=== PATIENT | female | born 1970 | race African-American/Black ===

== ENCOUNTER 2018-01-21 11:08 | Observation (INO) | payer MEDICAID ==
[~2018-01-21] VITALS: Ht 160 cm; Wt 91.0 kg
[2018-01-21] MEDS ORDERED: NITR0.4T28 SL (11:38)
[2018-01-21] MEDS ORDERED: TRAZ-136 PO (11:38)
[2018-01-21] MEDS ORDERED: ENAL10TA PO (11:38)
[2018-01-21] MEDS ORDERED: SITA50TA PO (11:38)
[2018-01-21] MEDS ORDERED: SERT100T5 PO (11:38)
[2018-01-21] MEDS ORDERED: METF500T5 PO (11:38)
[2018-01-21] MEDS ORDERED: OXYcodone/APAP 5/325MG TABLET ONE (11:44)
[2018-01-21] MEDS ORDERED: SODIUM CHLORIDE FLUSH 10ML SYR IVF ONE (12:00)
[2018-01-21] MEDS ORDERED: OXYcodone/APAP 5/325MG TABLET PO ONE (12:00)
[2018-01-21 12:17] LABS: CHLORIDE 105 mmol/L (98-107)
[2018-01-21 12:18] LABS: ALANINE AMINOTRANSFERASE 15 U/L (12-78); ALBUMIN 3.6 g/dL (3.4-5.0); ANION GAP 8 mmol/L (5-15); BASOPHILS % (AUTO) 0 % (0-1); CALCIUM 8.5 mg/dL (8.5-10.1); CREATININE 0.64 mg/dL (0.55-1.02); EOSINOPHILS % (AUTO) 2 % (1-7); LYMPHOCYTES % (AUTO) 23 % (22-44); MD NO; MEAN CORPUSCULAR HEMOGLOBIN 27.7 pg (27.0-34.8); MEAN CORPUSCULAR HGB CONC 32.9 g/dL (32.4-35.8); MEAN CORPUSCULAR VOLUME 84.4 fL (80-100); MONOCYTES # (AUTO) 0.48 x10^3/uL (0.2-0.8); MONOCYTES % (AUTO) 10 % (2-9); NEUTROPHILS # (AUTO) 3.12 x10^3/uL (1.8-6.8); NEUTROPHILS % (AUTO) 65 % (42-75); PLATELET COUNT 344 x10^3/uL (130-400); RED BLOOD COUNT 3.99 x10^6/uL (3.82-5.3); RED CELL DISTRIBUTION WIDTH 19.2 % (9.6-15.2)
[2018-01-21] MEDS ORDERED: HYDROcodone/APAP 5/325 TABLET ONE (12:21)
[2018-01-21 12:22] LABS: ALKALINE PHOSPHATASE 54 U/L (45-117); BILIRUBIN,TOTAL 0.5 mg/dL (0.2-1.0); TOTAL PROTEIN 7.9 g/dL (6.4-8.2); TROPONIN I < 0.015 ng/mL (0.000-0.045)
[2018-01-21] MEDS ORDERED: HYDROcodone/APAP 5/325 TABLET PO ONE (12:30)
[2018-01-21] MEDS ORDERED: ASPIRIN 81 MG TABLET CHEW PO ONE (12:30)
[2018-01-21] MEDS ORDERED: ASPIRIN 81 MG TABLET CHEW ONE (12:46)
[2018-01-21] MEDS ORDERED: ENALAPRILAT 1.25 MG/ML, 2ML IVPush PRN (14:00)
[2018-01-21] MEDS ORDERED: ONDANSETRON 2MG/ML, 2ML IVPush PRN (14:00)
[2018-01-21] MEDS ORDERED: BACLOFEN 10 MG TABLET PO PRN (14:00)
[2018-01-21] MEDS ORDERED: hydrALAzine 20 MG/ML, 1ML IVPush PRN (14:00)
[2018-01-21] MEDS ORDERED: ONDANSETRON ODT 4 MG PO PRN (14:00)
[2018-01-21] MEDS ORDERED: ACETAMINOPHEN 325 MG TABLET PO PRN (14:00)
[2018-01-21 14:20] VITALS: BP 155/89
[2018-01-21 14:58] LABS: HEMOGLOBIN A1C 6.8 % (4.2-6.3)
[2018-01-21] MEDS: ENOXAPARIN 40 MG/0.4 ML SQ SCH (15:59)
[2018-01-21] MEDS: NICOTINE 21 MG/24 HR PATCH.TD24 TD SCH (16:00)
[2018-01-21] MEDS: FAMOTIDINE 20 MG TABLET PO SCH (17:12)
[2018-01-21 17:56] LABS: CULTURE INDICATED? YES; MICROSCOPIC INDICATED
[2018-01-21 18:10] LABS: TROPONIN I < 0.015 ng/mL (0.000-0.045)
[2018-01-21] MEDS: CARVEDILOL 12.5 MG TABLET PO SCH (18:26)
[2018-01-21] MEDS ORDERED: CEFTRIAXONE 1,000 MG in SODIUM CHLORIDE 0.9% 50 ML IV SCH (19:00)
[2018-01-21 19:33] VITALS: BP 187/112
[2018-01-21] MEDS: metFORMIN 500 MG TABLET PO SCH (19:43)
[2018-01-21] MEDS: HYDROcodone/APAP 5/325 TABLET PO PRN (20:05)
[2018-01-21 20:28] VITALS: BP 140/77
[2018-01-21 20:45] VITALS: BP 151/96
[2018-01-21 20:47] VITALS: BP 147/87
[2018-01-21] MEDS ORDERED: ATORVASTATIN 40 MG TABLET PO SCH (21:00)
[2018-01-21 23:49] LABS: TROPONIN I < 0.015 ng/mL (0.000-0.045)
[2018-01-22] MEDS: HYDROcodone/APAP 5/325 TABLET PO PRN (01:06)
[2018-01-22 01:17] VITALS: BP 144/101
[2018-01-22 01:20] VITALS: BP 152/110
[2018-01-22 01:42] VITALS: BP 142/93
[2018-01-22 05:41] LABS: BASOPHILS # (AUTO) 0.02 x10^3/uL (0-0.1); BASOPHILS % (AUTO) 0 % (0-1); EOSINOPHILS % (AUTO) 2 % (1-7); LYMPHOCYTES # (AUTO) 1.83 x10^3/uL (1-3.4); LYMPHOCYTES % (AUTO) 37 % (22-44); MD NO; MEAN CORPUSCULAR HEMOGLOBIN 28.1 pg (27.0-34.8); MEAN CORPUSCULAR HGB CONC 32.7 g/dL (32.4-35.8); MEAN CORPUSCULAR VOLUME 85.9 fL (80-100); MEAN PLATELET VOLUME 8.3 fL (7.4-10.4); MONOCYTES # (AUTO) 0.41 x10^3/uL (0.2-0.8); MONOCYTES % (AUTO) 8 % (2-9); NEUTROPHILS # (AUTO) 2.54 x10^3/uL (1.8-6.8); NEUTROPHILS % (AUTO) 52 % (42-75); PLATELET COUNT 302 x10^3/uL (130-400); RED BLOOD COUNT 3.64 x10^6/uL (3.82-5.3); RED CELL DISTRIBUTION WIDTH 19.4 % (9.6-15.2)
[2018-01-22 05:51] LABS: CHLORIDE 103 mmol/L (98-107)
[2018-01-22] MEDS ORDERED: ASPIRIN 325 MG TABLET EC PO SCH (06:00)
[2018-01-22 06:03] LABS: ANION GAP 8 mmol/L (5-15); CALCIUM 8.2 mg/dL (8.5-10.1); CHOL/HDL RATIO 5.8; CHOLESTEROL, TOTAL 207 mg/dL (140-239); CREATININE 0.47 mg/dL (0.55-1.02); HDL CHOL % 17 % (28-40); HDL CHOLESTEROL (DIRECT) 36 mg/dL (40-60); LDL CHOLESTEROL,CALCULATED 141 mg/dL (54-169); LDL/HDL RATIO 3.9 (0.5-3.0); TRIGLYCERIDES 148 mg/dL (50-200); VLDL CHOLESTEROL 30 mg/dL (0-25)
[2018-01-22 06:25] VITALS: BP 155/105
[2018-01-22] MEDS: CARVEDILOL 12.5 MG TABLET PO SCH (06:26)
[2018-01-22 08:25] VITALS: BP 139/84
[2018-01-22] MEDS ORDERED: REGADENOSON 0.4 MG/5 ML SYRINGE ONE (08:39)
[2018-01-22] MEDS ORDERED: TRAZODONE 50MG TABLET PO SCH (09:00)
[2018-01-22] MEDS ORDERED: ENALAPRIL 10 MG TABLET PO SCH (09:00)
[2018-01-22] MEDS ORDERED: SITAGLIPTIN 50MG TABLET PO SCH (09:00)
[2018-01-22] MEDS ORDERED: SERTRALINE 100MG TABLET PO SCH (09:00)
[2018-01-22] MEDS: FAMOTIDINE 20 MG TABLET PO SCH (10:25)
[2018-01-22] MEDS: metFORMIN 500 MG TABLET PO SCH (10:25)
[2018-01-22] MEDS ORDERED: HYDROcodone/APAP 5/325 TABLET PO PRN (11:00)
[2018-01-22] MEDS ORDERED: CIPR500T87 PO (13:46)
[2018-01-22] MEDS ORDERED: ASPI-621 PO (13:46)
[2018-01-22] MEDS ORDERED: ATOR20TA9 PO (13:46)
[2018-01-22 14:23] VITALS: BP 137/94
[2018-01-22] MEDS: NICOTINE 21 MG/24 HR PATCH.TD24 TD SCH (14:55)
[2018-01-22] MEDS: ENOXAPARIN 40 MG/0.4 ML SQ SCH (14:55)
== END 2018-01-22 15:42 | disposition home or self-care (01) ==
LOC: ED 13:00 → EDIP 13:01 → INTOOBSV 13:01 → ED 13:16 → 5SO 14:10 → DCLOUNGE 01-22 15:28
PROVIDERS: ADMIT Internal Medicine; ATTEND Internal Medicine
DX: R07.89 Other chest pain (principal); D64.9 Anemia, unspecified; E11.9 Type 2 diabetes mellitus without complications; F12.90 Cannabis use, unspecified, uncomplicated; F17.210 Nicotine dependence, cigarettes, uncomplicated; G89.29 Other chronic pain; I10 Essential (primary) hypertension; I25.10 Atherosclerotic heart disease of native coronary artery without angina pectoris; I25.2 Old myocardial infarction; E87.6 Hypokalemia; Z79.82 Long term (current) use of aspirin; Z82.49 Family history of ischemic heart disease and other diseases of the circulatory system; Z83.3 Family history of diabetes mellitus; Z85.41 Personal history of malignant neoplasm of cervix uteri; Z95.5 Presence of coronary angioplasty implant and graft; M54.5 Low back pain; M25.569 Pain in unspecified knee; Z79.899 Other long term (current) drug therapy
CPT/HCPCS: 36415; 71045; 78452; 80048; 80053; 80061; 81001; 83036; 83735; 83880; 84100; 84443; 84484; 85025; 87040; 87086; 93005; 93017; 96365; 96372; 96375; 99285; A9502; C9898; G0378; J0696; J1650; J2785